=== PATIENT | female | born 1995 | race Caucasian/White ===

== ENCOUNTER 2018-01-26 22:26 | Emergency (ER) | payer OTHER ==
[~2018-01-26] VITALS: Ht 152.4 cm; Wt 49.5 kg
[2018-01-26 22:29] VITALS: TEMP 37.1; Ht 152.4 cm; Wt 49.5 kg
--- NOTE | 2018-01-26 23:04 | DIAGNOSTIC IMAGING REPORT ---
CHEST ONE VIEW PORTABLE CLINICAL HISTORY: Atypical chest pain COMPARISON STUDY: No previous studies for comparison. FINDINGS: The cardiac and mediastinal contours are normal. There is no evidence of focal pulmonary consolidation. There is no evidence of failure. No pleural effusions are visualized.[ IMPRESSION: No active disease in the chest. Electronically signed by: Enrique Fishman M.D. 01/26/2018 11:02 PM Dictated Date/Time: 01/26/2018 11:02 PM
--- NOTE | 2018-01-26 23:15 | EMERGENCY ROOM VISIT NOTE ---
History Report prepared by Joseph: Reji Limon Under the Supervision of: Dr. Chun Fabian M.D. First contact with patient: 22:33 Chief Complaint: CHEST PAIN Stated Complaint: CHEST PAINS,TIGHTNESS,COUGH History of Present Illness The patient is a 22 year old white female with a no significant past medical history who presents to the Emergency Room with complaints of intermittent chest pains that chest has been experiencing for the past 90 minutes. The patient states that her symptoms have presented over the past couple of days. The symptoms usually present at night and are worsened with laying down and walking around. She also complains that she has had a dry cough for the past month. She denies any recent trauma or heavy lifting. The patient did recently travel to [place] from [place] and she is on control. She denies any LE swelling or history of blood clots. Source of History: patient Onset: 90 minutes Position: chest Timing: intermittent Modifying Factors (Worsening): other (laying flat and walking around. ) Associated Symptoms: + cough Review of Systems See HPI for pertinent positives and negatives. A total of ten systems were reviewed and were otherwise negative. Past Medical & Surgical None. Family History Cancer Social History Smoking Status: Never Smoker Marital Status: single Housing Status: lives with roommate Occupation Status: [employer] student Current/Historical Medications Scheduled Famotidine (Pepcid), 20 MG PO DAILY Fluticasone Propionate (Flovent Hfa), 2 PUFFS INH BID Norethindrone Acetate-Ethinyl (Lo Loestrin Fe), 1 TAB PO DAILY Allergies Coded Allergies: Amoxicillin (Verified Allergy, Unknown, HIVES, 01/26/18) Uncoded Allergies: DOG AND CAT SALIVA (Allergy, Unknown, HIVES, 01/26/18) Physical Exam Vital Signs Date Time Temp Pulse Resp B/P (MAP) Pulse Ox O2 Delivery O2 Flow Rate FiO2 01/26/18 22:36 Room Air 01/26/18 22:29 37.1 91 16 135/74 100 Room Air Physical Exam GENERAL: Awake, alert, well-appearing, NAD. Wearing glasses. HENT: Normocephalic, atraumatic. EYES: Normal conjunctiva. Sclera non-icteric. PERRL. No anisocoria. NECK: Supple. No nuchal rigidity. FROM. RESPIRATORY: CTAB, no rhonchi, wheezing, crackles CARDIAC: RRR, no MRG ABDOMEN: Soft, NTND, BS+ MSK: No chest wall TTP, no LE edema NEURO: GCS 15, CN 2-12 intact, moves all 4s on command SKIN: No rash or jaundice noted. Medical Decision & Procedures ER Provider Diagnostic Interpretation: Radiology results as stated below per my review and radiologist interpretation: CHEST ONE VIEW PORTABLE CLINICAL HISTORY: Atypical chest pain COMPARISON STUDY: No previous studies for comparison. FINDINGS: The cardiac and mediastinal contours are normal. There is no evidence of focal pulmonary consolidation. There is no evidence of failure. No pleural effusions are visualized.[ IMPRESSION: No active disease in the chest. Electronically signed by: Enrique Fishman M.D. 01/26/2018 11:02 PM Dictated Date/Time: 01/26/2018 11:02 PM ECG Per My Interpretation Indication: chest pain Rate (beats per minute): 90 Rhythm: normal sinus Findings: other (No STS changes or TWI) ED Course 2304: The patient was evaluated in room C5. A complete history and physical exam was performed. 0006: I performed a bedside ECHO at this time. 0011: I reevaluated the patient. Discussed results and discharge instructions: She verbalized understanding and agreement. The patient is ready for discharge. Medical Decision The patient is a 22 year old white female with a no significant past medical history who presents to the Emergency Room with complaints of intermittent chest pains that chest has been experiencing for the past 90 minutes. Nursing notes reviewed. Ancillary studies and prior records reviewed. Differential diagnosis: Etiologies such as cardiac ischemia, aortic dissection, pulmonary embolism, pneumonia, pneumothorax, musculoskeletal, infections, pericarditis, myocarditis , esophageal rupture, gastrointestinal, as well as others were entertained. Patient was seen and evaluated the bedside. The patient had been complaining of some chest pains. The patient was seen at [facility] on Sunday and was prescribed an albuterol inhaler. Patient states this did not much improve her discomfort and did make her somewhat anxious and shaky. On exam the patient does not have any concerning exam findings. Patient is stable vital signs. There was a chest x-ray component performed along with an EKG. The patient's EKG was unremarkable no ischemic signs or arrhythmias noted. Patient's chest x-ray is unremarkable with normal cardiac size. I did perform a bedside ultrasound which showed good concentric squeeze a normal EF, no pericardial effusion, no evidence of elevated right-sided pressures. Patient is PERC positive given the patient's use of OCPs however less likely PE given the patient's low well score. The patient did relate that she was having some pain when she was laid down so there was a possibility of pericarditis however this is not evident on EKG. I did offer the patient some medications for pain however the patient refused at this time. Again there is no evidence of any pericardial effusion. With the patient is suitable for outpatient follow-up and treatment at this time. The likelihood of ACS given the patient's lack of risk factors are concerning history. Patient also has a nonischemic EKG. Patient was given strict follow-up, discharge, and return precautions. All questions were answered. Patient was deemed suitable for outpatient follow-up at this time. Patient agreed with the plan of care and was safely discharged home. Medication Reconcilliation Current Medication List: was personally reviewed by me Blood Pressure Screening Patient's blood pressure: Normal blood pressure Impression Primary Impression: Chest pain Scribe Attestation The scribe's documentation has been prepared under my direction and personally reviewed by me in its entirety. I confirm that the note above accurately reflects all work, treatment, procedures, and medical decision making performed by me. Departure Information Dispostion Home / Self-Care Referrals No Doctor, Assigned (PCP) Patient Instructions Chest Pain - [facility], [facility] Additional Instructions Please return to the emergency department if you have worsening or recurrent symptoms not amenable to at-home treatment. Please call for a follow-up appointment with her primary care physician. Please take your medications as prescribed. If you have other concerns and/or complaints please feel free to also call your primary care physician's office or return the ED for further evaluation, management, and treatment. You may take 400 mg Ibuprofen every 6 hours as needed for pain/fever with food unless told by your physician not to take NSAIDs. You may take tylenol 650 mg every 6 hours as needed for pain/fever unless told by your physician to not take it or have liver problems. You may take motrin and tylenol separately or at the same time. Take your medications as prescribed. You have been examined and treated today on an emergency basis only. This is not a substitute for, or an effort to provide, complete comprehensive medical care. It is impossible to recognize and treat all injuries or illnesses in a single emergency department visit. It is therefore important that you follow up closely with [facility], your PCP, and/or your specialist(s). Call as soon as possible for an appointment. Thank you for your time and consideration. I look forward to speaking with you again soon. Please don't hesitate to call us if you have any questions.
[2018-01-26] MEDS ORDERED: FLVHFA110 INH (23:25)
[2018-01-26] MEDS ORDERED: ACETAMINOPHEN 325 MG TAB PO STA (23:25)
[2018-01-26] MEDS ORDERED: KETOROLAC TROMETHAMINE 60 MG/2 ML VIAL IM STA (23:25)
[2018-01-26] MEDS ORDERED: FAMO20TA11 PO (23:25)
[2018-01-26] MEDS ORDERED: NORETAB29 PO (23:25)
[2018-01-27 00:21] VITALS: BP 129/77; PULSE 90; O2SAT 99
== END 2018-01-27 00:22 | disposition home or self-care (01) ==
LOC: C.EDB 22:27 → C.EDC 01-27 00:22
DX: R07.9 Chest pain, unspecified (principal); R05 Cough; Z79.3 Long term (current) use of hormonal contraceptives; Z79.899 Other long term (current) drug therapy; Z88.1 Allergy status to other antibiotic agents; Z91.048 Other nonmedicinal substance allergy status